=== PATIENT | female | born 1985 | race Caucasian/White ===

== ENCOUNTER 2017-02-05 00:34 | Emergency (ER) | payer BC ==
[2017-02-05 01:59] VITALS: BP 127/85
== END 2017-02-05 01:59 | disposition left against medical advice (07) ==
LOC: ED 00:34
DX: O16.3 Unspecified maternal hypertension, third trimester (principal); Z3A.38 38 weeks gestation of pregnancy; Z88.8 Allergy status to other drugs, medicaments and biological substances

== ENCOUNTER 2019-12-12 18:00 | Emergency (ER) | payer BC ==
[~2019-12-12] VITALS: Ht 160 cm; Wt 79.4 kg
[2019-12-12 18:29] VITALS: BP 132/70; Ht 160 cm; Wt 79.4 kg
== END 2019-12-12 19:04 | disposition home or self-care (01) ==
LOC: ED 18:00
DX: S61.551A Open bite of right wrist, initial encounter (principal); Z88.6 Allergy status to analgesic agent; Z88.5 Allergy status to narcotic agent; W54.0XXA Bitten by dog, initial encounter; Y93.89 Activity, other specified; Y92.89 Other specified places as the place of occurrence of the external cause; Y99.8 Other external cause status
CPT/HCPCS: 90715